=== PATIENT | male | born 1980 | race Caucasian/White ===

== ENCOUNTER 2024-04-17 21:08 | Emergency (ER) | payer OTHER ==
[~2024-04-17] VITALS: Ht 177.8 cm; Wt 101.9 kg
[2024-04-17 23:24] VITALS: BP 164/89; TEMP 97.3; O2SAT 100
== END 2024-04-17 23:26 | disposition home or self-care (01) ==
LOC: M ED 21:08
DX: M79.605 Pain in left leg (principal); E78.5 Hyperlipidemia, unspecified; K21.9 Gastro-esophageal reflux disease without esophagitis; D68.2 Hereditary deficiency of other clotting factors; Z88.0 Allergy status to penicillin; Z90.89 Acquired absence of other organs